=== PATIENT | female | born 1950 | race Caucasian/White ===

== ENCOUNTER 2018-11-22 05:39 | Inpatient (IN) | payer MEDICARE ==
[2018-11-22] VITALS (7 sets, daily range): BP systolic 117–159; BP diastolic 46–82
[~2018-11-22] VITALS: Ht 170.2 cm; Wt 101.4 kg
[~2018-11-22 05:39] MED LIST: AMLODIPINE BESYL5 MG PO; ASPIRIN EC81 MG PO; ASPIRIN325 MG PO; CLOPIDOGREL75 MG PO; DAILY VITAMIN1 EAC3 PO; DIOVAN160 MG PO; ECHINACEA80 MG; ESIDRIX25 MG PO; FUROSEMIDE40 MG PO; HYDROCHLOROTHIAZIDE PO; KLOR-CON 1010 MEQ PO; METOPROLOL TAR100 MG PO; METOPROLOL TART50 MG PO; MULTI-VITAMIN1 EACH PO; PROAIR HFA INH8.5 GM INH; SYMBICORT 16010.2 GM INH
[2018-11-22] MEDS ORDERED: ALBUTEROL SULF 0.083% NEB SOLN 3 ML NEB NEB STA (05:46)
[2018-11-22] MEDS ORDERED: IPRATROPIUM BROMIDE 0.02% 2.5 ML NEB NEB ONE (06:00)
[2018-11-22 06:17] LABS: ABG HCO3 22 mmol/L (23-28); ABG PCO2 39 mmHg (41-51); ABG PH 7.37 (7.31-7.41); ABG PO2 163 mmHg (80-105)
[2018-11-22 06:26] LABS: BASOPHILS % 0.2 % (0.0-1.0); EOSINOPHILS % 0.1 % (0.0-6.0); HEMATOCRIT 34.7 % (34.2-44.1); LYMPHOCYTES % 8.9 % (18.0-39.1); MEAN CORPUSCULAR HEMOGLOBIN 29.6 pg (28-32); MEAN CORPUSCULAR HGB CONC 34.6 g/dL (31-35); MEAN CORPUSCULAR VOLUME 85.5 fL (81-99); MONOCYTES % 8.2 % (4.4-11.3); NEUTROPHILS # (AUTO) 6.8 (2.1-6.9); NEUTROPHILS % 82.1 % (38.7-80.0); PLATELET COUNT 260 x10e3/uL (140-360); RED BLOOD COUNT 4.06 x10e6/uL (3.6-5.1); RED CELL DISTRIBUTION WIDTH 13.2 % (11.7-14.4)
[2018-11-22 06:27] LABS: LYMPHOCYTES # (AUTO) 0.7 (1.0-3.2); MONOCYTES # (AUTO) 0.7 (0.2-0.8)
[2018-11-22 06:47] LABS: ALANINE AMINOTRANSFERASE 14 IU/L (0-55); ALBUMIN 3.9 g/dL (3.5-5.0); ALBUMIN/GLOBULIN RATIO 1.3 (0.8-2.0); ALKALINE PHOSPHATASE 77 IU/L (40-150); ANION GAP 15.3 mmol/L (8-16); BLOOD UREA NITROGEN 8 mg/dL (7-26); BUN/CREATININE RATIO 9 (6-25); CALCIUM 9.6 mg/dL (8.4-10.2); CARBON DIOXIDE 23 mmol/L (22-29); CHLORIDE 89 mmol/L (98-107); CREATINE KINASE 556 IU/L (29-168); CREATININE, SERUM 0.94 mg/dL (0.57-1.11); EST GLOMERULAR FILTRATION RATE 59 ML/MIN (60-); GLUCOSE 123 mg/dL (74-118); POTASSIUM 4.3 mmol/L (3.5-5.1); SODIUM 123 mmol/L (136-145)
--- NOTE | 2018-11-22 06:58 | NUR ---
report given to rocco radford
--- NOTE | 2018-11-22 07:02 | Diagnostic Imaging Report ---
Examination: Single AP view of the chest. COMPARISON: None. INDICATION: Shortness of breath DISCUSSION: Lines/tubes: None. Lungs: The lungs are well inflated and clear. No pneumonia or pulmonary edema. Pleura: No pleural effusion or pneumothorax. Heart and mediastinum: The heart and the mediastinum are unremarkable. Bones and soft tissues: No acute bony abnormalities. IMPRESSION: 1. No acute cardiopulmonary abnormalities. Signed by: Dr. Brayan Garza M.D. on 11/22/2018 6:59 AM
--- NOTE | 2018-11-22 07:05 | NUR ---
BIPAP 14/6; RATE 16; 50%
--- NOTE | 2018-11-22 07:06 | NUR ---
RESP NOTIFIED OF NEBS.
[2018-11-22] MEDS ORDERED: SODIUM CHLORIDE FLUSH 10 ML SYR INJ PRN (07:15)
--- OUTSIDE RECORDS SUMMARY | 2018-11-22 07:49 | XMS REPORT ---
Author Author [facility] Address Unknown Phone Unavailable Care Team Providers Care Supervisor Pipe Manufacture Name Role Phone Kassy PINZON Unavailable Unavailable Problems This patient has no known problems. Allergies, Adverse Reactions, Alerts This patient has no known allergies or adverse reactions. Medications This patient has no known medications. Results Test Description Test Time Test Comments Text Results Atomic Results Result Comments CHEST SINGLE (PORTABLE) 2018-11-22 06:58:00 [facility] [address] [place] [address] Patient Name: MOSHE JOHNSON MR #: [id number] : 1950 Age/Sex: 68/F Req #: [id number] Adm Physician: Ordered by: HARMAN PINZON MD Report #: [id number] Location: ER Room/Bed: Procedure: [id number] DX/CHEST SINGLE (PORTABLE) Exam Date: Exam Time: REPORT STATUS: Signed Examination: Single AP view of the chest. COMPARISON: None. INDICATION: Shortness of breath DISCUSSION: Lines/tubes: None. Lungs: The lungs are well inflated and clear. No pneumonia or pulmonary edema. Pleura: No pleural effusion or pneumothorax. Heart and mediastinum: The heart and the mediastinum are unremarkable. Bones and soft tissues: No acute bony abnormalities. IMPRESSION: 1. No acute cardiopulmonary abnormalities. Signed by: Dr. Nima Garnica M.D. on 11/22/2018 6:59 AM Dictated By: NIMA GARNICA MD 8 Transcribed By: DOMINIC on 11/22/18658 COPY TO: HARMAN PINZON MD
--- NOTE | 2018-11-22 09:00 | NUR ---
Received patient from the ER, alert and oriented x3 she arrived in stretcher, able to transfer from stretcher to bed independently, steady gait. patient on non- rebreather upon arrival, placed on monitor tech, oriented to room and use of call light. Skin intact. Instructed to use call light when needing assistance.
[2018-11-22] MEDS: ALBUTEROL/IPRATROPIUM 3 ML NEB NEB SCH ×4 (11:00→23:25)
[2018-11-22] MEDS ORDERED: METHYLPREDNISOLONE SOD SUCC 40 MG/ML VIAL 1ML IV SCH (12:00)
[2018-11-22] MEDS: AZITHROMYCIN 250 MG TAB PO SCH (12:04)
--- NOTE | 2018-11-22 13:59 | NUR ---
H&P cc: sob HPI: 68yoF, PCP , Pulm , developed sob for 3 days; No f/c/s. No cp. PMH: HTN, HLD, COPD, CAD s/p 2 stents in 2014, severe COPD on 2L/Min O2 at home, chr resp failure, TIA x2, former smoker PShx: coronary stents Allergies; see emr FH/SH: former smoker; quit 2014; ; Meds; see MAR ROS: no f/c/s/N/V/D/MATOS/cp/N/V/skin rash/vision changes v/s; revd PE: anicteric ns1s2 reduced BS soft nt nd no e/t skin dry flat affect a&ox3; [place] labs/med; revd A/P: 68yoF AECOPD Hyponatremia QUETA Acute Rhabdomyolysis HTN Obesity BMI 37.8 chronic resp failure Former smoker CAD with hx stents PLAN IV abx; IV steroids Hold lasix; give some fluid Hba1c/lipids lovenox; pepcid Kentrell Briggs MD, PhD
[2018-11-22 14:51] LABS: CREATINE KINASE MB 5.1 ng/mL (0-5.0)
[2018-11-22 15:26] LABS: CHOL/HDL RATIO 2.7 (3.0-3.6)
--- NOTE | 2018-11-22 16:11 | NUR ---
spoke to in regards to new consult. states he will see patient "tomorrow."
[2018-11-22] MEDS: SODIUM CHLORIDE 0.9% 1000ML 1,000 ML IV SCH (17:22)
[2018-11-22] MEDS: BENZONATATE 100 MG CAP PO SCH ×2 (17:24→21:00)
[2018-11-22] MEDS: GUAIFENESIN 600MG/DEXTROMETHORPHAN 30MG TABSR PO SCH (17:24)
[2018-11-22] MEDS: ENOXAPARIN SOD INJ 40 MG/0.4 ML SYR SC SCH (17:24)
[2018-11-22] MEDS: FAMOTIDINE 20 MG TAB PO SCH (17:25)
--- NOTE | 2018-11-22 19:00 | NUR ---
Report and rounds complete, patient in bed resting at this time. High flow 02 at 4L. Call light within reach. No issues or concerns. Will continue to monitor.
[2018-11-22] MEDS: METOPROLOL TARTRATE 50 MG TAB PO SCH (20:40)
[2018-11-22] MEDS: METHYLPREDNISOLONE SOD SUCC 40 MG/ML VIAL 1ML IV SCH (20:40)
[2018-11-22] MEDS: ACETAMINOPHEN 325 MG TAB PO PRN (21:57)
[2018-11-23] VITALS (7 sets, daily range): BP systolic 136–181; BP diastolic 54–79
[2018-11-23] MEDS: BENZONATATE 100 MG CAP PO SCH ×4 (00:48→20:30)
[2018-11-23 02:22] LABS: CREATINE KINASE MB 10.6 ng/mL (0-5.0)
[2018-11-23] MEDS: ALBUTEROL/IPRATROPIUM 3 ML NEB NEB SCH ×6 (03:18→23:27)
[2018-11-23] MEDS: METHYLPREDNISOLONE SOD SUCC 40 MG/ML VIAL 1ML IV SCH ×2 (04:52→16:00)
[2018-11-23] MEDS: SODIUM CHLORIDE 0.9% 1000ML 1,000 ML IV SCH ×2 (04:52→16:00)
[2018-11-23 05:35] LABS: BASOPHILS % 0.2 % (0.0-1.0); EOSINOPHILS # (AUTO) 0.1 (0.0-0.4); EOSINOPHILS % 0.8 % (0.0-6.0); HEMATOCRIT 35.3 % (34.2-44.1); HEMOGLOBIN 11.9 g/dL (12.0-16.0); LYMPHOCYTES # (AUTO) 0.7 (1.0-3.2); LYMPHOCYTES % 5.6 % (18.0-39.1); MEAN CORPUSCULAR HEMOGLOBIN 29.2 pg (28-32); MEAN CORPUSCULAR HGB CONC 33.7 g/dL (31-35); MEAN CORPUSCULAR VOLUME 86.7 fL (81-99); MONOCYTES # (AUTO) 0.7 (0.2-0.8); MONOCYTES % 5.3 % (4.4-11.3); NEUTROPHILS % 87.4 % (38.7-80.0); PLATELET COUNT 263 x10e3/uL (140-360); RED BLOOD COUNT 4.07 x10e6/uL (3.6-5.1); RED CELL DISTRIBUTION WIDTH 13.6 % (11.7-14.4)
[2018-11-23 05:49] LABS: ANION GAP 13.1 mmol/L (8-16); CALCIUM 9.1 mg/dL (8.4-10.2); CREATININE, SERUM 0.96 mg/dL (0.57-1.11); POTASSIUM 4.1 mmol/L (3.5-5.1)
[2018-11-23] MEDS: FAMOTIDINE 20 MG TAB PO SCH ×2 (07:36→15:20)
[2018-11-23] MEDS: AZITHROMYCIN 250 MG TAB PO SCH (08:01)
[2018-11-23] MEDS: AMLODIPINE BESYLATE 5 MG TAB PO SCH (08:08)
[2018-11-23] MEDS: LORATADINE 10 MG TAB PO SCH (08:08)
[2018-11-23] MEDS: CLOPIDOGREL BISULFATE 75 MG TAB PO SCH (08:08)
[2018-11-23] MEDS: GUAIFENESIN 600MG/DEXTROMETHORPHAN 30MG TABSR PO SCH ×2 (08:08→16:00)
[2018-11-23] MEDS: METOPROLOL TARTRATE 50 MG TAB PO SCH ×2 (08:09→20:30)
[2018-11-23] MEDS ORDERED: LORATADINE 10 MG TAB PO SCH (09:00)
[2018-11-23] MEDS ORDERED: VALSARTAN 160 MG TAB PO SCH (09:00)
--- NOTE | 2018-11-23 09:48 | NUR ---
CM SPOKE TO SHARIFA BEDSIDE RN FOR PATIENT. PATIENT RECEIVING IV FLUID FOR INCREASED CREATINE KINASE AND CK MB. CM ENCOURAGED RN TO ASK MD FOR DAILY WEIGHTS, FLUID RESTRICTION AND STRICT I & O DUE TO HISTORY OF CHF/ COPD.
--- NOTE | 2018-11-23 10:08 | NUR ---
EDUCATED ABOUT IMM, SIGNED, FILED IN CHART, WITH COPY LEFT WITH FAMILY AT BEDSIDE.
[2018-11-23] MEDS ORDERED: PROAIR HFA INH8.5 GM INH (10:18)
[2018-11-23] MEDS ORDERED: CLONIDINE HCL0.1 MG PO (10:19)
--- NOTE | 2018-11-23 11:08 | Diagnostic Imaging Report ---
EXAMINATION: CHEST 2 VIEWS INDICATION: ^pneumonia COMPARISON: Chest x-ray 11/22/2018 FINDINGS: PA and lateral views TUBES and LINES: None. LUNGS: Lungs are well inflated. Subtle airspace opacities in both lung bases. There is no evidence of pneumonia or pulmonary edema. PLEURA: No pleural effusion or pneumothorax. HEART AND MEDIASTINUM: The cardiomediastinal silhouette is unremarkable. There are atherosclerotic calcifications within the aorta. BONES AND SOFT TISSUES: No acute osseous lesion. Soft tissues are unremarkable. UPPER ABDOMEN: No free air under the diaphragm. IMPRESSION: Subtle airspace opacity in both lung bases. This may represent atelectasis versus pneumonia. Signed by: Dr. Neftali Mckeon M.D. on 11/23/2018 11:05 AM
--- NOTE | 2018-11-23 11:17 | Consultation ---
DATE OF CONSULTATION: Pulmonary Consultation Patient of Dr. Kentrell Briggs, Dr. Salas, and Dr. Lorenzo Mauro. HISTORY OF PRESENT ILLNESS: The patient says that she became choked up and short of breath after an upper respiratory tract infection 5 days ago. She has had a productive cough, but mucus was quite thick. She has a history of a childhood asthma, history of severe COPD, FEV1 last measured was 0.7 L. History of coronary artery disease with a right coronary stent in 2014. MEDICATIONS: Included: 1. Breo inhaler. 2. ProAir. 3. Lasix. 4. Lopressor. PAST MEDICAL HISTORY: She has a history of hypertension. She uses metoprolol. SOCIAL HISTORY: She smoked 1-1/2 packs a day for 50 years. Did not drink. 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 Born in [place]. FAMILY HISTORY: Positive for hypertension, coronary artery disease. PAST SURGICAL HISTORY: Includes tonsillectomy, left breast cyst removal. PHYSICAL EXAMINATION: GENERAL: She is a well-developed white female, in no acute distress, looking her stated age. HEAD: Normocephalic, atraumatic. EYES: Extraocular movements intact. LUNGS: Diminished breath sounds, rales right base. HEART: Regular rhythm. ABDOMEN: Nontender. EXTREMITIES: Nonedematous. IMPRESSION: She is on home oxygen, home BiPAP at a level of 8. She continues to work despite her disabilities. PLAN: Continue corticosteroids of moderate dosing. Empiric antibiotics. Sputum studies. Resume BiPAP. Continue supplemental oxygen. Thank you for this kind referral. MD MIRIAM Jaffe/ALISHA /[id number]
--- NOTE | 2018-11-23 15:04 | NUR ---
IM- progress note O/N: no events ROS: no f/c/s/N/V/D/MATOS/cp/N/V/skin rash/vision changes v/s; revd PE: anicteric ns1s2 reduced BS soft nt nd no e/t skin dry flat affect a&ox3; [place] labs/med; revd A/P: 68yoF AECOPD Hyponatremia QUETA Acute Rhabdomyolysis HTN Obesity BMI 37.8 chronic resp failure Former smoker CAD with hx stents PLAN IV abx; IV steroids Hold lasix; give some fluid Hba1c/lipids lovenox; pepcid 11/23 cont care. Kentrell Briggs MD, PhD
[2018-11-23] MEDS: ENOXAPARIN SOD INJ 40 MG/0.4 ML SYR SC SCH (16:00)
--- NOTE | 2018-11-23 19:00 | NUR ---
Report and rounds complete. Patient sitting in bed. No issues or concerns at this time. Call light within reach. Will continue to monitor.
[2018-11-23] MEDS ORDERED: IRBESARTAN150 MG PO (19:22)
[2018-11-23] MEDS ORDERED: GLUCOSAMINE &1 EAC1 PO (19:22)
[2018-11-23] MEDS ORDERED: ARED PO (19:22)
[2018-11-23] MEDS ORDERED: BREO ELLIPTA IH (19:22)
[2018-11-23] MEDS ORDERED: ULTRAM50 MG PO (19:22)
--- NOTE | 2018-11-23 19:26 | NUR ---
Left message for Dr Brgigs: regarding elevated BP 181/79, 105. Awaiting call back.
--- NOTE | 2018-11-23 19:35 | NUR ---
Return call from Dr Briggs. Notified BP 181/79, 105. patient home meds have not been resumed. Home meds reviewed, Lasix 40 mg po daily PRN edema ( resume), Potassium chl 10 mEq po daily PRN with lasix ( resume), Metoprolol 100 mg po bid ( order dose here 25 mg)( resume dose home), Clonidine 0.1mg po TID PRN SBP greater than 170 ( restart but scheduled Q 8 hrs), Tramadol 25 mg po Q 8 hrs PRN pain(resume), ProAir inh PRN ( resume), Irbesartan 150 mg po BID (resume). Breo Ellipta 200/25 ih daily (resume) Patient c/o of edema and refusing IV fluids, NA level 127 ( okay to stop fluids)
[2018-11-23] MEDS: BUDESONIDE/FORMOTEROL 160/4.5MCG INHALER INH SCH (19:42)
[2018-11-23] MEDS ORDERED: ALBUTEROL SULFATE HFA 8GM INHALATION AEROSOL INH PRN (19:45)
[2018-11-23] MEDS ORDERED: NON-FORMULARY MEDICATION (Potassium Chloride (Klor-Con 10) 1 TAB) PO PRN (19:45)
[2018-11-23] MEDS ORDERED: FUROSEMIDE 40 MG TAB PO PRN (19:45)
[2018-11-23] MEDS ORDERED: TRAMADOL HCL 50 MG TAB PO PRN (19:45)
[2018-11-23] MEDS ORDERED: POTASSIUM CHLORIDE 10MEQ EA PO PRN (20:00)
--- NOTE | 2018-11-23 21:00 | NUR ---
Education provided that MD has ordered for CPAP at bedtime while sleeping. Patient states she will have a friend bring hers from home tomorrow, " I dont like the one you have here because it blocks my view and it is loud." Education reinforced to attempt to use cpap we have available here until can have one brought from home. States " I will try in a little bit." Also informed patient that will need to have someone bring Breo Ellipta inhaler because pharmacy does not carry, verbalized understanding.
[2018-11-23] MEDS ORDERED: CLONIDINE HCL 0.1 MG TAB PO SCH (22:00)
--- NOTE | 2018-11-23 23:30 | NUR ---
Ask patient if ready to apply CPAP... patient stated that still not ready but will call when ready. Will continue to monitor.
[2018-11-23] MEDS ORDERED: CLONIDINE HCL 0.1 MG TAB PO ONE (23:45)
--- NOTE | 2018-11-24 | NUR ---
Placed on CPAP per RT. Will continue to monitor
--- NOTE | 2018-11-24 03:30 | NUR ---
Patient requested to remove CPAP, placed on high flow 02 at 4L. Will continue to monitor.
[2018-11-24] MEDS: ALBUTEROL/IPRATROPIUM 3 ML NEB NEB SCH ×6 (03:38→23:35)
[2018-11-24 04:00] VITALS: BP 156/69
[2018-11-24 05:41] LABS: BASOPHILS % 0.1 % (0.0-1.0); HEMATOCRIT 32.4 % (34.2-44.1); HEMOGLOBIN 10.9 g/dL (12.0-16.0); LYMPHOCYTES # (AUTO) 1.6 (1.0-3.2); LYMPHOCYTES % 9.9 % (18.0-39.1); MEAN CORPUSCULAR HEMOGLOBIN 29.4 pg (28-32); MEAN CORPUSCULAR HGB CONC 33.6 g/dL (31-35); MEAN CORPUSCULAR VOLUME 87.3 fL (81-99); MONOCYTES # (AUTO) 1.1 (0.2-0.8); MONOCYTES % 6.9 % (4.4-11.3); NEUTROPHILS # (AUTO) 12.9 (2.1-6.9); NEUTROPHILS % 82.5 % (38.7-80.0); PLATELET COUNT 262 x10e3/uL (140-360); RED BLOOD COUNT 3.71 x10e6/uL (3.6-5.1); RED CELL DISTRIBUTION WIDTH 14.1 % (11.7-14.4)
[2018-11-24 05:52] LABS: ANION GAP 10.7 mmol/L (8-16); CREATININE, SERUM 1.04 mg/dL (0.57-1.11); POTASSIUM 4.7 mmol/L (3.5-5.1)
[2018-11-24] MEDS: CLONIDINE HCL 0.1 MG TAB PO SCH ×3 (06:00→22:00)
--- NOTE | 2018-11-24 06:00 | NUR ---
Patient in bed resting, no issues or concerns at this time. Call light within reach. Will continue to monitor.
--- NOTE | 2018-11-24 06:28 | NUR ---
IM- progress note O/N: no events ROS: no f/c/s/N/V/D/MATOS/cp/N/V/skin rash/vision changes v/s; revd PE: anicteric ns1s2 reduced BS soft nt nd no e/t skin dry flat affect a&ox3; [place] labs/med; revd A/P: 68yoF AECOPD Hyponatremia QUETA Acute Rhabdomyolysis HTN Obesity BMI 37.8 chronic resp failure Former smoker CAD with hx stents PLAN IV abx; IV steroids Hold lasix; give some fluid Hba1c/lipids lovenox; pepcid 11/23 cont care. 11/24 check labs; Hyponatremia- salt tabs; Kentrell Briggs MD, PhD
[2018-11-24] MEDS: SODIUM CHLORIDE 1 GM TAB PO SCH ×4 (06:39→20:42)
[2018-11-24] MEDS: BUDESONIDE/FORMOTEROL 160/4.5MCG INHALER INH SCH ×2 (07:45→19:00)
[2018-11-24] MEDS: AZITHROMYCIN 250 MG TAB PO SCH (07:46)
[2018-11-24] MEDS: FAMOTIDINE 20 MG TAB PO SCH ×2 (07:46→16:29)
[2018-11-24 08:00] VITALS: BP 148/60
[2018-11-24] MEDS: LORATADINE 10 MG TAB PO SCH (08:03)
[2018-11-24] MEDS: BENZONATATE 100 MG CAP PO SCH ×3 (08:03→20:42)
[2018-11-24] MEDS: ASPIRIN 325 MG TAB PO SCH (08:03)
[2018-11-24] MEDS: GUAIFENESIN 600MG/DEXTROMETHORPHAN 30MG TABSR PO SCH ×2 (08:03→16:29)
[2018-11-24] MEDS: METOPROLOL TARTRATE 50 MG TAB PO SCH ×2 (08:03→20:42)
[2018-11-24] MEDS: CLOPIDOGREL BISULFATE 75 MG TAB PO SCH (08:03)
[2018-11-24] MEDS: METHYLPREDNISOLONE SOD SUCC 40 MG/ML VIAL 1ML IV SCH ×2 (08:03→16:29)
[2018-11-24] MEDS: AMLODIPINE BESYLATE 5 MG TAB PO SCH (08:07)
[2018-11-24] MEDS: IRBESARTAN 150 MG TAB PO SCH ×2 (08:07→16:29)
[2018-11-24] MEDS ORDERED: FUROSEMIDE INJ 10 MG/ML 4 ML VIAL IV ONE (10:15)
[2018-11-24 13:15] VITALS: BP 137/61
[2018-11-24 16:15] VITALS: BP 138/56
[2018-11-24] MEDS: ENOXAPARIN SOD INJ 40 MG/0.4 ML SYR SC SCH (16:29)
--- NOTE | 2018-11-24 19:00 | NUR ---
Reports and rounds completed. Patient resting in bed watching TV. Call light within reach. Will continue to monitor.
[2018-11-24 19:35] VITALS: BP 148/59
[2018-11-24 19:36] VITALS: BP 148/59
[2018-11-24] MEDS: ACETAMINOPHEN 325 MG TAB PO PRN (22:09)
[2018-11-25] VITALS (7 sets, daily range): BP systolic 123–167; BP diastolic 51–79
--- NOTE | 2018-11-25 00:23 | NUR ---
Patient wearing home CPAP, 02 sats down to 79%. Assessed patient, 02 sat up to 89 to 91%. No ports available to attach 02. Can uses hospital cpap: patient refuses, its too loud and uncomfortable. Patient placed on 02 3L NC, 02 sats 95 to 97% will continue to monitor.
[2018-11-25] MEDS: ALBUTEROL/IPRATROPIUM 3 ML NEB NEB SCH ×6 (03:10→23:00)
--- NOTE | 2018-11-25 06:00 | NUR ---
In bed on computer, no issues or concerns. Call light within reach. Will continue to monitor.
[2018-11-25] MEDS: ACETAMINOPHEN 325 MG TAB PO PRN (06:04)
[2018-11-25] MEDS: CLONIDINE HCL 0.1 MG TAB PO SCH ×3 (06:04→22:00)
[2018-11-25] MEDS: BUDESONIDE/FORMOTEROL 160/4.5MCG INHALER INH SCH ×2 (07:15→19:00)
--- NOTE | 2018-11-25 07:28 | NUR ---
IM- progress note O/N: no events ROS: no f/c/s/N/V/D/MATOS/cp/N/V/skin rash/vision changes v/s; revd PE: anicteric ns1s2 reduced BS soft nt nd no e/t skin dry flat affect a&ox3; [place] labs/med; revd A/P: 68yoF AECOPD Hyponatremia QUETA Acute Rhabdomyolysis HTN Obesity BMI 37.8 chronic resp failure Former smoker CAD with hx stents PLAN IV abx; IV steroids Hold lasix; give some fluid Hba1c/lipids lovenox; pepcid 11/23 cont care. 11/24 check labs; Hyponatremia- salt tabs; 11/25 check labs Kentrell Briggs MD, PhD
--- NOTE | 2018-11-25 07:45 | NUR ---
Pt received in bed. Walking rounds done. Emotional support given to pt, will monitor
[2018-11-25 08:05] LABS: BASOPHILS % 0.1 % (0.0-1.0); HEMOGLOBIN 11.5 g/dL (12.0-16.0); LYMPHOCYTES # (AUTO) 1.8 (1.0-3.2); LYMPHOCYTES % 15.2 % (18.0-39.1); MEAN CORPUSCULAR HEMOGLOBIN 29.6 pg (28-32); MEAN CORPUSCULAR HGB CONC 33.8 g/dL (31-35); MEAN CORPUSCULAR VOLUME 87.6 fL (81-99); MONOCYTES # (AUTO) 0.9 (0.2-0.8); MONOCYTES % 7.9 % (4.4-11.3); NEUTROPHILS # (AUTO) 8.9 (2.1-6.9); NEUTROPHILS % 76.4 % (38.7-80.0); PLATELET COUNT 263 x10e3/uL (140-360); RED BLOOD COUNT 3.88 x10e6/uL (3.6-5.1); RED CELL DISTRIBUTION WIDTH 14.1 % (11.7-14.4)
[2018-11-25 08:34] LABS: ANION GAP 11.2 mmol/L (8-16); CALCIUM 9.2 mg/dL (8.4-10.2); CREATININE, SERUM 1.05 mg/dL (0.57-1.11); MAGNESIUM 2.5 MG/DL (1.3-2.1); POTASSIUM 4.2 mmol/L (3.5-5.1)
[2018-11-25] MEDS: ASPIRIN 325 MG TAB PO SCH (08:44)
[2018-11-25] MEDS: METHYLPREDNISOLONE SOD SUCC 40 MG/ML VIAL 1ML IV SCH ×2 (08:44→16:39)
[2018-11-25] MEDS: AZITHROMYCIN 250 MG TAB PO SCH (08:44)
[2018-11-25] MEDS: LORATADINE 10 MG TAB PO SCH (08:44)
[2018-11-25] MEDS: FAMOTIDINE 20 MG TAB PO SCH ×2 (08:44→16:39)
[2018-11-25] MEDS: GUAIFENESIN 600MG/DEXTROMETHORPHAN 30MG TABSR PO SCH ×2 (08:45→16:43)
[2018-11-25] MEDS: SODIUM CHLORIDE 1 GM TAB PO SCH (08:45)
[2018-11-25] MEDS: METOPROLOL TARTRATE 50 MG TAB PO SCH ×2 (08:45→20:47)
[2018-11-25] MEDS: BENZONATATE 100 MG CAP PO SCH ×3 (08:45→20:47)
[2018-11-25] MEDS: CLOPIDOGREL BISULFATE 75 MG TAB PO SCH (08:45)
--- NOTE | 2018-11-25 08:45 | NUR ---
All meds given as ordered. Call barrios within reach. Will monitor
[2018-11-25] MEDS ORDERED: FUROSEMIDE 40 MG TAB PO ONE (09:45)
[2018-11-25] MEDS: AMLODIPINE BESYLATE 5 MG TAB PO SCH (10:58)
[2018-11-25] MEDS: IRBESARTAN 150 MG TAB PO SCH ×2 (10:58→16:39)
--- NOTE | 2018-11-25 12:47 | NUR ---
Pt received resting in bed. Alert and oriented x3. Pt proemted to [facility] staff and surroundings. Encouraged to press call barrios if help needed. Emotional support given. Pt has Dobhoff tube to right Nare, pt is NPO. Call barrios within reach. Will monitor Addendum: 11/25/18 at 1729 by Sarahi Allen RN wrong entry
[2018-11-25] MEDS: ENOXAPARIN SOD INJ 40 MG/0.4 ML SYR SC SCH (16:39)
[2018-11-26 00:14] VITALS: BP 155/65
[2018-11-26 04:18] VITALS: BP 143/58
--- NOTE | 2018-11-26 04:20 | NUR ---
patient is sleeping, no distress noted, vitals signs checked, will continue to monitor.
[2018-11-26] MEDS: CLONIDINE HCL 0.1 MG TAB PO SCH ×2 (05:39→13:27)
--- NOTE | 2018-11-26 06:31 | NUR ---
D/C summary: Principal dx: AECOPD Hyponatremia Likely CKD3 Acute Rhabdomyolysis Secondary Dx: HTN Obesity BMI 37.8 chronic resp failure Former smoker CAD with hx stents PLAN IV abx; IV steroids Hold lasix; give some fluid Hba1c/lipids lovenox; pepcid 11/23 cont care. 11/24 check labs; Hyponatremia- salt tabs; 11/25 check labs 11/26 improving; check BMP d/c home f/u pcp 1 week; / 1 week; nephrology 3-5 days Stable d/c>35mins Kentrell Briggs MD, PhD
--- NOTE | 2018-11-26 06:42 | NUR ---
dr Briggs to patient room, he ordered to wean down the O2 to 2 lt NC.
[2018-11-26] MEDS: ALBUTEROL/IPRATROPIUM 3 ML NEB NEB SCH ×3 (07:00→15:00)
[2018-11-26 07:20] VITALS: BP 111/51
--- NOTE | 2018-11-26 07:20 | NUR ---
Pt received resting in bed. No s/s of distress noted or voiced. Call barrios within reach. Will monitor
[2018-11-26 07:41] VITALS: BP 111/51
[2018-11-26 07:57] LABS: ANION GAP 9.7 mmol/L (8-16); CALCIUM 9.1 mg/dL (8.4-10.2); CREATININE, SERUM 1.07 mg/dL (0.57-1.11); POTASSIUM 4.7 mmol/L (3.5-5.1)
[2018-11-26] MEDS: BUDESONIDE/FORMOTEROL 160/4.5MCG INHALER INH SCH (08:14)
[2018-11-26] MEDS: METHYLPREDNISOLONE SOD SUCC 40 MG/ML VIAL 1ML IV SCH (08:38)
[2018-11-26] MEDS: LORATADINE 10 MG TAB PO SCH (08:38)
[2018-11-26] MEDS: FAMOTIDINE 20 MG TAB PO SCH ×2 (08:38→17:09)
[2018-11-26] MEDS: ASPIRIN 325 MG TAB PO SCH (08:38)
[2018-11-26] MEDS: AZITHROMYCIN 250 MG TAB PO SCH (08:38)
[2018-11-26] MEDS: CLOPIDOGREL BISULFATE 75 MG TAB PO SCH (08:39)
[2018-11-26] MEDS: GUAIFENESIN 600MG/DEXTROMETHORPHAN 30MG TABSR PO SCH ×2 (08:39→17:09)
[2018-11-26] MEDS: METOPROLOL TARTRATE 50 MG TAB PO SCH (08:39)
[2018-11-26] MEDS: BENZONATATE 100 MG CAP PO SCH ×2 (08:39→17:09)
--- NOTE | 2018-11-26 08:39 | NUR ---
All meds given as ordered. Call barrios within reach. Emotional support given. Will monitor
[2018-11-26] MEDS ORDERED: FUROSEMIDE 40 MG TAB PO SCH (09:00)
[2018-11-26] MEDS: ACETAMINOPHEN 325 MG TAB PO PRN (10:59)
[2018-11-26 11:10] VITALS: BP 152/72
[2018-11-26] MEDS: IRBESARTAN 150 MG TAB PO SCH ×2 (11:36→17:09)
[2018-11-26] MEDS: AMLODIPINE BESYLATE 5 MG TAB PO SCH (11:36)
[2018-11-26 16:00] VITALS: BP 146/68
[2018-11-26] MEDS ORDERED: LORATADINE10 MG PO (16:53)
[2018-11-26] MEDS: ENOXAPARIN SOD INJ 40 MG/0.4 ML SYR SC SCH (16:53)
[2018-11-26] MEDS ORDERED: MUCINEX DM ER1 EACH PO (16:53)
[2018-11-26] MEDS ORDERED: PREDNISONE20 MG PO (16:53)
[2018-11-26] MEDS ORDERED: AVAPRO150 MG PO (16:53)
[2018-11-26] MEDS ORDERED: SYMBICORT 16010.2 GM INH (16:53)
[2018-11-26] MEDS ORDERED: AZITHROMYCIN250 MG PO (16:53)
[2018-11-26] MEDS ORDERED: TESSALON PERLE100 MG PO (16:53)
--- NOTE | 2018-11-26 17:53 | NUR ---
Pt given discharge instructions regarding meds, diet, activities, and follow up appointment with Doctors. Pt verbalized understanding of teaching. Requesting taxi voucher to go home. [facility] aware. Will follow up
--- NOTE | 2018-11-26 20:14 | NUR ---
PT IS DISCHARGED TO HOME .PT HAS GONE TO THE HOME BY [facility] .PCT HAS TAKEN TO THE PT TO THE [facility] PTHAS TAKEN ALL HER BELONGINGS .CALL LIGHT WITH IN REACH CONTINUE TO MONITOR
[2018-11-27] MEDS ORDERED: PREDNISONE 20 MG TAB PO SCH (09:00)
== END 2018-11-26 19:45 | disposition home or self-care (01) | DRG 191 ==
LOC: ER 05:39 → ERHOLD 07:09 → IMCU 08:27
PROVIDERS: ADMIT Internal Medicine; ATTEND Internal Medicine
DX: J44.1 Chronic obstructive pulmonary disease with (acute) exacerbation (principal); N17.9 Acute kidney failure, unspecified; J96.10 Chronic respiratory failure, unspecified whether with hypoxia or hypercapnia; M62.82 Rhabdomyolysis; E87.1 Hypo-osmolality and hyponatremia; R06.03 Acute respiratory distress; I25.10 Atherosclerotic heart disease of native coronary artery without angina pectoris; Z95.5 Presence of coronary angioplasty implant and graft; Z87.891 Personal history of nicotine dependence; E66.9 Obesity, unspecified; Z68.37 Body mass index [BMI] 37.0-37.9, adult
CPT/HCPCS: 36415; 36600; 71045; 71046; 80048; 80053; 80061; 82550; 82553; 82805; 83036; 83735; 83880; 84484; 85025; 93005; 94640; 94660; 99284; J1650; J1940; J2920; J7030